=== PATIENT | male | born 1975 | race Caucasian/White ===

== ENCOUNTER 2019-06-08 04:19 | Emergency (ER) | payer SELFPAY ==
[2019-06-08 05:03] LABS: #Basophils 0.1 thou/uL (0.0-0.2); #Eosinphils 0.2 thou/uL (0.0-0.7); #Lymphocytes 3.1 thou/uL (1.20-3.40); #Monocytes 0.5 thou/uL (0.11-0.59); %Eosinophils 2.3 % (0.0-10.0); %Lymphocytes 39.4 % (21.0-51.0); %Monocytes 6.3 % (0.0-10.0); %Neutrophils 50.9 % (42.0-75.0); Hemoglobin 16.1 g/dL (14.0-18.0); Mean Corpuscular HGB CONC 34.5 g/dL (32.0-36.0); Mean Corpuscular Hemoglobin 32.9 pg (27.0-31.0); Mean Corpuscular Volume 95.2 fL (78.0-98.0); Mean Platelet Volume 7.1 fL (7.4-10.4); Platelet Count 168 thou/uL (130-400); Red Blood Cell (RBC) Count 4.89 mill/uL (4.70-6.10); White Blood Cell (WBC) Count 7.9 thou/uL (4.8-10.8)
[2019-06-08] MEDS ORDERED: methylPREDNISolone Sod Succ/PF 125 MG/2 ML VIAL ONE (05:09)
[2019-06-08 05:25] LABS: ALT (SGPT) 9 U/L (8-55); AST (SGOT) 14 U/L (5-34); Albumin 3.9 g/dL (3.5-5.0); Alkaline Phosphatase 35 U/L (40-110); Anion Gap 12 mmol/L (10-20); BUN (Urea Nitrogen) 7 mg/dL (8.9-20.6); Bilirubin, Total 0.3 mg/dL (0.2-1.2); CK (CPK) 76 U/L (30-200); Calc. Creatinine Clearance 0 mL/min (70-130); Calcium 8.6 mg/dL (7.8-10.44); Carbon Dioxide 26 mmol/L (22-29); Chloride 96 mmol/L (98-107); Estimated GFR-MDRD 89; Globulin 2.9 g/dL (2.4-3.5); Glucose 124 mg/dL (70-105); Protein, Total 6.8 g/dL (6.0-8.3); Sodium 130 mmol/L (136-145)
--- NOTE | 2019-06-08 11:04 | RAD ---
FRONTAL VIEW CHEST: COMPARISON: 09/28/2014. INDICATION: Dyspnea. FINDINGS: No lobar consolidation, effusion, or pneumothorax. Cardiac silhouette is normal in size. Perihilar markings are stable. IMPRESSION: Stable chest. POS: [facility]
== END 2019-06-08 05:45 | disposition home or self-care (01) ==
LOC: ERS 04:19
DX: J44.1 Chronic obstructive pulmonary disease with (acute) exacerbation (principal); F17.210 Nicotine dependence, cigarettes, uncomplicated
CPT/HCPCS: 71045; 80053; 82550; 83880; 84484; 85025; 94640; 94760; 96374; 99406; J2930; J7620

== ENCOUNTER 2021-02-11 09:26 | Emergency (ER) | payer SELFPAY ==
[2021-02-11] MEDS ORDERED: Fluorescein Opthalmic Strip ONE (12:21)
[2021-02-11] MEDS ORDERED: Proparacaine 0.5% Opth 15 ML BOT ONE (12:21)
== END 2021-02-11 14:02 ==
LOC: ERS 09:26
DX: H53.142 Visual discomfort, left eye (principal); F17.210 Nicotine dependence, cigarettes, uncomplicated